=== PATIENT | female | born 1990 | race African-American/Black ===

== ENCOUNTER 2022-09-24 05:01 | Emergency (ER) | payer OTHER ==
[~2022-09-24] VITALS: Ht 162.6 cm; Wt 98.4 kg
[2022-09-24] MEDS ORDERED: KETOROLAC TROMETH 30 MG/ML 1ML VIAL IM ONE (08:00)
[2022-09-24] MEDS ORDERED: CYCL-839 PO (08:17)
[2022-09-24] MEDS ORDERED: IBUP600T28 PO (08:17)
[2022-09-24 11:53] VITALS: BP 108/77
== END 2022-09-24 19:44 | disposition home or self-care (01) ==
LOC: ER 05:01
DX: S16.1XXA Strain of muscle, fascia and tendon at neck level, initial encounter (principal); S39.012A Strain of muscle, fascia and tendon of lower back, initial encounter; S20.20XA Contusion of thorax, unspecified, initial encounter; S40.812A Abrasion of left upper arm, initial encounter; V49.88XA Car occupant (driver) (passenger) injured in other specified transport accidents, initial encounter; Y93.89 Activity, other specified; Y92.89 Other specified places as the place of occurrence of the external cause; Y99.8 Other external cause status
CPT/HCPCS: 70450; 71111; 72100; 72125; 72170; 96372; 99285; J1885; 93005